=== PATIENT | male | born 1940 | race Caucasian/White ===

== ENCOUNTER 2020-04-19 14:59 | Outpatient (CLI) | payer MEDICARE, OTHER, SELFPAY ==
--- NOTE | ~2020-04-19 | XR_ITS ---
EXAMINATION: XR abdomen/kub 1V EXAM DATE: 04/19/2020 15:35 INDICATION: Constipation. TECHNIQUE: Frontal projection of the upper abdomen, frontal projection lower abdomen/pelvis for inter pretation. There is no prior study for comparison. FINDINGS: Laparotomy wires. Splenic artery calcifications. Gano There is a nonobstructive bowel gas pattern. There is moderate amount of colonic stool. No suspicious soft tissue calcifications identifi ed. There are bony degenerative changes. IMPRESSION: 1. Moderate amount of colonic stool and gas. Reviewed, dictated and finalized at location G.
== END 2020-04-19 15:00 | disposition home or self-care (01) ==
LOC: ANHIMG 15:03
PROVIDERS: PCP Internal Medicine; Visit Provider Internal Medicine
DX: K59.00 Constipation, unspecified (principal)
CPT/HCPCS: 74018

== ENCOUNTER 2020-12-12 22:53 | Emergency (ER) | payer MEDICARE, OTHER, SELFPAY ==
--- NOTE | 2020-12-12 23:36 | PC.NURSE ---
Pt in to triage with spouse. Pt anxious, states you've got to change this! . Pt holding a wound vac full of what appears to be blood. States they've brought a new containment device with them and they've changed it before, however, are unable to change it this evening. States contacted Merom's home health nurse and was told that she cannot do anything about it. Pt has the wound vac to his left groin, where he states has had a lymph node removed on November 14. While VS being obtained, pt's removed the containment system, they applied the new system, and the unit appears to be withdrawing fluid as it should be. Pt and decide to leave without being seen. BP 145/100, HR 94, spo2 96%, temp 97.9 S. Pt and ambulatory to exit.
== END 2020-12-12 23:25 | disposition left against medical advice (07) ==
PROVIDERS: PCP Internal Medicine
DX: Z53.21 Procedure and treatment not carried out due to patient leaving prior to being seen by health care provider (principal)
CPT/HCPCS: 99199

== ENCOUNTER → 2021-06-12 10:34 | Outpatient (CLI) | payer MEDICARE, OTHER, SELFPAY ==
--- NOTE | ~2021-06-12 | XR_ITS ---
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 TECHNIQUE: Frontal and lateral projections of the chest obtained and reviewed. Comparison is made to prior examination from 07/09/2018. FINDINGS: Mild cardiomegaly. Right basilar granuloma. The lungs are otherwise clear. There are no pl eural effusions. There is no pneumothorax suspected. The bones and soft tissues are unremarkable. IMPRESSION: Mild cardiomegaly. Reviewed, dictated and finalized at location A. [facility] [employer] IMPRESSION: Mild cardiomegaly.
== END ==
PROVIDERS: PCP Internal Medicine; Visit Provider Surgery
DX: C43.72 Malignant melanoma of left lower limb, including hip (principal); I51.7 Cardiomegaly
CPT/HCPCS: 71046

== ENCOUNTER 2025-04-25 11:43 | Emergency (ER) | payer MEDICARE, OTHER, SELFPAY ==
[2025-04-25] VITALS (18 sets, daily range): BP systolic 151–175; BP diastolic 78–97; PULSE 72; RESP 20; TEMP 36.7; O2SAT 95–100
--- NOTE | ~2025-04-25 | CT_ITS ---
EXAMINATION: CT cervical spine wo con COMPARISON: None HISTORY: fall Wednesday TECHNIQUE: Axial images were obtained through the spine without IV contrast. Coronal, sagittal reconstruction images were obtained from the axial views. CT scan performed using dose optimization techniques including the following automated exposure control; adjustment of mA and/or kV; use of iterative reconstruction technique. Automatic exposure control was used to reduce radiation dose. Permanent radiation dose record is archived to PACS. FINDINGS: The vertebral heights are intact. No fracture or subluxation. The disc heights are intact. Soft tissues unremarkable. Impression: No acute abnormality. Reviewed, dictated and finalized at location P. Impression: No acute abnormality.
--- NOTE | ~2025-04-25 | CT_ITS ---
EXAMINATION: CT brain wo gumaro, 04/25/2025 15:28 CDT HISTORY: fall Sun on Eliquis COMPARISON: No comparisons available. Technique: Axial images obtained of the brain without contrast. One or more of the following dose reduction techniques were used: automated exposure control, adjustment of the mA and/or kV according to patient size, use of iterative reconstruction technique. Findings: No acute infarct or parenchymal hemorrhage. No abnormal mass or mass effect. No midline shift. No extra-axial fluid collections. No hydrocephalus. Sequelae left mastoiditis, the right mastoid air cells appear unremarkable Sinuses and orbits unremarkable. No acute fracture. No significant facial or scalp soft tissue swelling evident. No radiopaque foreign body is seen. Impression: 1.No acute intracranial abnormality. Reviewed, dictated and finalized at location P. Impression: 1.No acute intracranial abnormality.
--- NOTE | ~2025-04-25 | CT_ITS ---
CTA chest HISTORY:R breast swelling after fall on ELliquis . COMPARISON: None. TECHNIQUE: Following the noncontrasted orchard hand, axial images of the thorax were obtained following infusion of 100 cc of Isovue 370. Post-processing on an independent workstation was performed to reconstruct MIP images for evaluation of the thoracic vasculature. FINDINGS: Evaluation for pulmonary embolism is limited due to inadequate opacification of the pulmonary arteries. No acute pulmonary embolus seen. Small PEs in the segmental branches cannot be excluded due to inadequate opacification. There is no aortic aneurysm or dissection. There are mild groundglass opacities bilaterally. No focal consolidation, pleural effusions or pneumothorax. Heart is enlarged. There is no axillary, mediastinal or hilar adenopathy. Incidentally noted is a right breast mass measuring up to 6.2 cm. This likely represents a hematoma. Multiple bilateral renal cysts are noted. Review of bone windows demonstrates no osteoblastic or lytic lesions. IMPRESSION: There is no pulmonary embolus in the main pulmonary artery. Small PEs in the segmental branches cannot be excluded due to inadequate opacification. 6.2 cm hyperdense mass in the right breast likely represents a hematoma. No acute lung findings. All CT scans at this facility are performed using low dose modulation techniques as appropriate to perform exam including the following: automated exposure control; use of iterative reconstruction technique; adjustment of the mA and/or kV according to patient size (this includes techniques or standardized protocols for targeted exams where dose is matched to indication/reason for exam). Reviewed, dictated and finalized at location S. IMPRESSION: There is no pulmonary embolus in the main pulmonary artery. Small PEs in the se gmental branches cannot be excluded due to inadequate opacification. 6.2 cm hyperdense mass in the right breast likely represents a hematoma. No acute lung findings. All CT scans at this facility are performed using low dose modulation techniqu es as appropriate to perform exam including the following: automated exposure c ontrol; use of iterative reconstruction technique; adjustment of the mA and/or kV according to patient size (this includes techniques or standardized protocol s for targeted exams where dose is matched to indication/reason for exam).
--- NOTE | ~2025-04-25 | XR_ITS ---
XR knee RT 3V INDICATION: fall Sun; pain . COMPARISON: None. FINDINGS: Frontal, lateral and oblique views of the right knee demonstrate no acute fracture or dislocation. There is no joint effusion. Degenerative changes with joint space narrowing and marginal osteophytes are noted. IMPRESSION: Radiographic examination of the right knee demonstrates no acute fracture or dislocation. Reviewed, dictated and finalized at location S. IMPRESSION: Radiographic examination of the right knee demonstrates no acute fracture or di slocation.
--- NOTE | ~2025-04-25 | XR_ITS ---
XR wrist LT min 3V INDICATION: fall Sun, pain . COMPARISON: None. FINDINGS: Frontal, lateral and oblique views of the left wrist were obtained. Irregularity of the distal scaphoid is noted. Follow-up scaphoid views are recommended. IMPRESSION: Irregularity of the distal scaphoid may be projectional. Follow-up scaphoid view is recommended to exclude fracture. Reviewed, dictated and finalized at location S. IMPRESSION: Irregularity of the distal scaphoid may be projectional. Follow-up scaphoid vi ew is recommended to exclude fracture.
[2025-04-25 13:47] LABS: Hematocrit 43.3 % (42.0-52.0); Hemoglobin 14.4 g/dL (14.0-18.0); Immature Granulocyte Percent A 0.6 % (0-0.5); Immature Platelet Fraction Pct 2.5 % (0.9-11.2); Lymphocytes Absolute Auto 1.18 K/mm3 (0.9-3.2); Mean Corpuscular HGB Conc 33.3 g/dl (32-36); Mean Corpuscular Hemoglobin 28.4 pg (26-34); Mean Corpuscular Volume 85.4 fl (80-100); Nucleated Red Blood Cells Absolute Auto 0.000 K/mm3 (0.0-0.012); Nucleated Red Blood Cells Perc 0.0 % (0.0-0.2); Platelet Count Result 201 k/mm3 (150-375); Red Blood Count 5.07 M/mm3 (4.6-6.20); White Blood Count 7.3 K/mm3 (4.5-10.0)
[2025-04-25 14:00] LABS: Partial Thromboplastin Time 37.3 Seconds (22.3-36.8)
[2025-04-25 14:04] LABS: Alanine Aminotransferase 17 U/L (6-50); Albumin Level 3.5 g/dL (3.5-5.1); Alkaline Phosphatase 87 U/L (38-126); Anion Gap 6 mmol/L (4-12); Aspartate Amino Transferase 23 U/L (17-59); Bilirubin,Total 1.6 mg/dL (0.2-1.3); Blood Urea Nitrogen 22 mg/dL (9-20); Calcium 9.7 mg/dL (8.4-10.2); Carbon Dioxide 27 mmol/L (22-30); Chloride 108 mmol/L (98-107); Estimated CRCL calculation 57 ml/min; Estimated Glomerular Filt Rate > 60; Glucose 121 mg/dL (65-110); Potassium 3.8 mmol/L (3.4-5.0); Sodium 141 mmol/L (137-145); Total Protein 6.4 g/dL (6.3-8.2)
--- NOTE | 2025-04-25 14:11 | ED.FALL ---
HPI - Fall General Chief Complaint: Fall Stated Complaint: fall Wednesday, swelling on right breast, +thinner Time Seen by Provider: 04/25/25 13:26 Source: patient Mode of arrival: ambulatory Limitations: no limitations History of Present Illness HPI Narrative: Patient presents after a fall on Wednesday in which he missed a step and landed on a step. He had been having some pain in his left wrist and right knee, the latter caused him to have a hard time walking at first. Both of these are better now. However, he at first noticed some swelling of his right breast but the bruising and swelling is progressing and now painful, described as rock hard. He is on Eliquis for history of Afib. Has not taken any pain medications. Does not feel short of breath. Used ice at first. He will be undergoing a scan to look at the blood vessels around his heart soon through [facility] and subsequently undergoing Watchman procedure. In anticipation of this procedure he will be holding his Eliquis but this will be for a few weeks. The goal is that this will correct his atrial fibrillation and he will no longer require Eliquis given he has been deemed at risk given his falls. Related Data Home Medications ?Medication ?Instructions ?Recorded ?Confirmed ?Last Taken ?Type apixaban 5 mg tablet (Eliquis) 5 mg PO BID 09/13/19 03/21/25 Unknown History metoprolol succinate 25 mg mg PO 05/03/24 03/21/25 Unknown History tablet,extended release 24 hr Allergies Allergy/AdvReac Type Severity Reaction Status Date / Time Penicillins Allergy Intermediate Rash Verified 04/25/25 11:49 Sulfa (Sulfonamide Allergy Intermediate Rash Verified 04/25/25 11:49 Antibiotics) [facility] Past Medical History Medical History Chronic anticoagulation Hx of malignant neoplasm of colon Skin cancer Abdominal pain Arteriosclerotic heart disease (ASHD) Atrial fibrillation CAD (coronary artery disease) Colon cancer Cancer of skin Diabetes DJD (degenerative joint disease) GERD (gastroesophageal reflux disease) High cholesterol Spindle cell lipoma Surgical History Surgical History H/O colonoscopy History of ear surgery Hx of knee surgery Family History Family History Father Malignant neoplasm of prostate Family history of diabetes mellitus in first degree relative Mother Family history of diabetes mellitus in first degree relative Acute myocardial infarction Cerebrovascular accident Social History Social History Smoking status: Former smoker Smoking end date: 07/12/79 Alcohol intake: former Alcohol use details: haven't drank since 2017 since starting Eliquis Substance use: never Substance use type: does not use Current Housing: Decline to Answer Concerned About Future Housing: Decline to Answer Difficulty Paying Gas/Electric Bills: Decline to Answer Difficulty Paying for Meds: Decline to Answer Currently Unemployed: Decline to Answer Education: Decline to Answer Difficulty w/ Childcare or Family Care: Decline to Answer Exam Narrative: GENERAL: Well-appearing, well-nourished, and in no acute distress. HEAD: Normocephalic, atraumatic. EYES: Non injected, non icteric ENT: Nares clear, no rhinorrhea or epistaxis. Gross auditory acuity intact. NECK: Supple. No meningismus. CHEST: Speaking in full sentences. No respiratory distress. Lungs clear to auscultation bilaterally ; not diminished on the right and without consolidation, crackles, wheezes. Patient does have ecchymosis throughout the right breast (nipple and areola spared) which is also swollen with a hematoma. Mild tenderness to manipulation. Asymmetric when compared to contralateral. A bit of firmness, particularly layered at the inferior aspect of the breast. No nipple discharge. HEART: Rate controlled rate and rhythm. . ABDOMEN: Soft, nondistended. No rigidity or guarding. Not peritoneal EXTREMITIES: Normal range of motion. Effusion at the right knee but otherwise moving extremities x4. No tenderness to palpation of patient's left wrist which is also without pain on axial loading of the thumb and without snuff box tenderness. Demonstrates flexion and extension as well as eversion/inversion of the wrist. Demonstrates flexion/extension of right knee. SKIN: Warm, dry. No ecchymosis/laceration/abrasion overlying right knee or left wrist. NEURO: No focal deficits. Alert and oriented. Answering questions. Following commands. Normal speech without aphasia or dysarthria. PSYCH: Congruent mood and affect. Course Vital Signs Vital signs: Vital Signs Temperature 98.1 F 04/25/25 11:44 Pulse Rate 72 04/25/25 11:44 Respiratory Rate 20 04/25/25 11:44 Blood Pressure 175/86 H 04/25/25 11:44 Pulse Oximetry 100 04/25/25 11:44 Oxygen Delivery Room Air 04/25/25 11:44 Temperature 98.1 F 04/25/25 11:44 Pulse Rate 72 04/25/25 11:44 Respiratory Rate 20 04/25/25 11:44 Blood Pressure 157/89 H 04/25/25 13:31 Pulse Oximetry 98 04/25/25 16:00 Oxygen Delivery Room Air 04/25/25 11:44 MDM - Fall MDM Narrative Medical decision making narrative: Patient presents after a fall on Wednesday. Had been having left wrist pain and right knee pain though both of these are better now. He had missed a step and landed on a step and developed swelling of his right breast which has progressed. It is ecchymotic on exam with palpable hematoma. In the emergency department he is afebrile with vital signs notable for hypertension. INR 1.5. Left wrist pain is along the dorsum towards the radial aspect. Scaphoid injury considered based on xray read. However, no snuffbox tenderness on palpation and no pain with axial loading. I have low suspicion for occult scaphoid fracture given this as he states in general the pain in his wrist is essentially resolved. CT as below. No active extravasation on CT. Advised ice and pain control. Re-iterated at bedside that acetaminophen could be taken but not NSAIDs. Discussed applying ice 15-20 minutes 4times per day, not directly to the skin. Noted that the body would try to absorb and recycle the blood product. If continues to have issues/be symptomatic, surgical consultation could be obtained to discuss drainage/evacuation. Differential Diagnosis Differential diagnosis: Likely other (hematoma/seroma; considered active extravasation; torn pec muscle; wrist fracture/dislocation; fracture right knee/internal derangement; considered rib fracture, pulmonary contusion, PTX/hemothorax) Lab Data Attestation: I reviewed the patient's lab results. Lab results narrative: CBC and chemistry with mild abnormalities, nothing severe/marked 04/25/25 13:39 04/25/25 13:39 Labs: Lab Results 04/25/25 Range/Units 13:39 WBC 7.3 (4.5-10.0) K/mm3 RBC 5.07 (4.6-6.20) M/mm3 Hgb 14.4 (14.0-18.0) g/dL Hct 43.3 (42.0-52.0) % MCV 85.4 (80-100) fl MCH 28.4 (26-34) pg MCHC 33.3 (32-36) g/dl RDW 15.0 H (11.5-14.5) % Plt Count 201 (150-375) k/mm3 MPV 9.4 (7.4-10.4) fl Immature Gran % (Auto) 0.6 H (0-0.5) % Neut % (Auto) 72.3 (45.5-73.1) % Lymph % (Auto) 16.3 L (18.3-44.2) % Lee % (Auto) 8.3 (2.6-8.5) % Eos % (Auto) 2.1 (0-4.4) % Baso % (Auto) 0.4 (0.2-1.2) % Lymph # (Auto) 1.18 (0.9-3.2) K/mm3 Lee # (Auto) 0.6 (0.1-0.6) K/mm3 Eos # (Auto) 0.2 (0-0.3) K/mm3 Baso # (Auto) 0.0 (0.0-0.1) K/mm3 Abs Immat Gran (auto) 0.04 H (0.00-0.031) K/mm3 Absolute Neuts (auto) 5.3 (1.3-6.7) K/mm3 Absolute Nucleated RBC 0.000 (0.0-0.012) K/mm3 Band Neutrophils % Not Reportable Nucleated RBC % 0.0 (0.0-0.2) % Platelet Estimate Adequate (Adequate) % Immature Plt Fraction 2.5 (0.9-11.2) % Anisocytosis 1+ Schistocytes None seen PT 18.2 H (11.1-14.7) Seconds INR 1.5 APTT 37.3 H (22.3-36.8) Seconds Sodium 141 (137-145) mmol/L Potassium 3.8 (3.4-5.0) mmol/L Chloride 108 H (98-107) mmol/L Carbon Dioxide 27 (22-30) mmol/L Anion Gap 6 (4-12) mmol/L BUN 22 H (9-20) mg/dL Creatinine 1.08 (0.7-1.3) mg/dL Estim Creat Clear Calc 57 ml/min Estimated GFR > 60 (59 - ) Glucose 121 H (65-110) mg/dL Calcium 9.7 (8.4-10.2) mg/dL Total Bilirubin 1.6 H (0.2-1.3) mg/dL AST 23 (17-59) U/L ALT 17 (6-50) U/L Alkaline Phosphatase 87 (38-126) U/L Total Protein 6.4 (6.3-8.2) g/dL Albumin 3.5 (3.5-5.1) g/dL Imaging Data Radiologist's impression: Impressions Wrist X-Ray 04/25/25 15:27 IMPRESSION: Irregularity of the distal scaphoid may be projectional. Follow-up scaphoid view is recommended to exclude fracture. Knee X-Ray 04/25/25 15:28 IMPRESSION: Radiographic examination of the right knee demonstrates no acute fracture or dislocation. Head CT 04/25/25 15:44 Impression: 1.No acute intracranial abnormality. Cervical Spine CT 04/25/25 15:50 Impression: No acute abnormality. Chest CTA 04/25/25 15:53 IMPRESSION: There is no pulmonary embolus in the main pulmonary artery. Small PEs in the segmental branches cannot be excluded due to inadequate opacification. 6.2 cm hyperdense mass in the right breast likely represents a hematoma. No acute lung findings. All CT scans at this facility are performed using low dose modulation techniques as appropriate to perform exam including the following: automated exposure control; use of iterative reconstruction technique; adjustment of the mA and/or kV according to patient size (this includes techniques or standardized protocols for targeted exams where dose is matched to indication/reason for exam). Discharge Plan Discharge Clinical Impression: Fall, Traumatic hematoma of right breast, Bruise of breast Patient Disposition: Home Condition: Stable Instructions: Antibiotic Form, Fall Prevention for Older Adults (ED), Hematoma (ED), Ecchymosis (ED) Additional Instructions: You have evidence of a collection of blood in the breast known as a hematoma but otherwise without active leaking. You are predisposed to this given the fact that you are on Eliquis. Recommend applying ice and taking Tylenol as needed for pain; it is safe to take maximum 4000mg/day of acetaminophen. Given you are on Eliquis your continue to avoid taking NSAIDs such as ibuprofen, naproxen, Advil, Aleve, Motrin, etc.. Follow-up with your primary care physician. If no improvement over the next several days, you can follow-up with general surgeon Dr Ryder to discuss possibility of evacuation/drainage of the area although the body typically re-absorbs the blood products. Patient Language: Iranian Prescriptions: New acetaminophen 500 mg capsule 1,000 mg PO Q6H PRN (Reason: pain) Qty: 30 0RF No Action metoprolol succinate 25 mg tablet extended release 24 hr PO timolol maleate 0.5 % drops 1 drp EACH EYE Q12H Qty: 10 0RF Eliquis 5 mg tablet 5 mg PO BID amlodipine-valsartan 5-160 mg tablet 1 tablet PO DAILY Qty: 90 1RF Glyxambi 25-5 mg tablet See Rx Instructions .ROUTE .COMPLEX Qty: 90 3RF Dose Instruction: TAKE 1 TABLET BY MOUTH EVERY DAY Rx Instructions: TAKE 1 TABLET BY MOUTH EVERY DAY pioglitazone 15 mg tablet See Rx Instructions .ROUTE .COMPLEX Qty: 90 0RF Dose Instruction: TAKE 1 TABLET BY MOUTH DAILY Rx Instructions: TAKE 1 TABLET BY MOUTH DAILY pantoprazole 40 mg tablet,delayed release (DR/EC) See Rx Instructions .ROUTE .COMPLEX Qty: 90 0RF Dose Instruction: TAKE 1 TABLET BY MOUTH EVERY DAY IN THE MORNING Rx Instructions: TAKE 1 TABLET BY MOUTH EVERY DAY IN THE MORNING Follow-up/Referrals: Jevon Egan DO [Primary Care Provider, Internal Medicine] Jim Ryder MD [Physician, General Surgery] Time of Disposition: 16:29
[2025-04-25 14:16] LABS: INR 1.5; Prothrombin Time 18.2 Seconds (11.1-14.7)
[2025-04-25 14:30] LABS: Anisocytosis 1+; Schistocytes None Seen
[2025-04-25] MEDS: MORPHINE SULFATE (*CRX) 4 MG/ML INJ 2 MG IV PUSH (15:11)
[2025-04-25] MEDS: ACETAMINOPHEN 500 MG TABLET 1000 MG PO (16:33)
--- NOTE | 2025-04-25 16:48 | PC.NURSE ---
pt requested a discussion with Dr. Campuzano prior to discharge
== END 2025-04-25 17:08 | disposition home or self-care (01) ==
PROVIDERS: Emergency Provider Student in an Organized Health Care Education/Training Program; PCP Internal Medicine
DX: S20.01XA Contusion of right breast, initial encounter (principal); I48.91 Unspecified atrial fibrillation; I25.10 Atherosclerotic heart disease of native coronary artery without angina pectoris; E78.00 Pure hypercholesterolemia, unspecified; E11.9 Type 2 diabetes mellitus without complications; K21.9 Gastro-esophageal reflux disease without esophagitis; Z85.828 Personal history of other malignant neoplasm of skin; Z85.038 Personal history of other malignant neoplasm of large intestine; Z87.891 Personal history of nicotine dependence; Z79.01 Long term (current) use of anticoagulants; Z79.84 Long term (current) use of oral hypoglycemic drugs; Z79.899 Other long term (current) drug therapy; W10.9XXA Fall (on) (from) unspecified stairs and steps, initial encounter
CPT/HCPCS: 36415; 70450; 71275; 72125; 73110; 73562; 80053; 85025; 85055; 85610; 85730; 96374; 99284; A9270; J2270; Q9967